=== PATIENT | male | born 1995 | race Two or more races ===

== ENCOUNTER 2019-10-10 02:47 | Emergency (ER) | payer OTHER ==
[~2019-10-10] VITALS: Ht 182.9 cm; Wt 81.8 kg
[2019-10-10] MEDS ORDERED: SODIUM CHLORIDE 0.9% 2,450 ML IV ONE (03:09)
[2019-10-10] MEDS ORDERED: ONDANSETRON HCL 4 MG/2 ML VIAL IVP ONE (03:15)
[2019-10-10] MEDS ORDERED: KETOROLAC TROMETHAMINE 30 MG/ML VIAL IVP ONE (03:15)
[2019-10-10] MEDS ORDERED: IOVERSOL 350 MG/ML 100 ML VIAL ONE (03:17)
[2019-10-10] MEDS ORDERED: SODIUM CHLORIDE 0.9% 100 ML ONE (03:17)
[2019-10-10 04:04] LABS: BASOPHILS % (AUTO) 0.1 % (0.0-2.0); EOSINOPHILS % (AUTO) 0 % (1.0-6.0); HEMATOCRIT 49.4 % (41-53); HEMOGLOBIN 17.1 g/dL (13.5-17.5); LYMPHOCYTES # (AUTO) 0.6 K/uL (1.0-4.8); LYMPHOCYTES % (AUTO) 8.4 % (22.0-44.0); MEAN CORPUSCULAR HEMOGLOBIN 30.3 pg (26.0-34.0); MEAN CORPUSCULAR HGB CONC 34.5 G/dL (31.0-37.0); MEAN CORPUSCULAR VOLUME 88 fL (80-100); NEUTROPHILS # (AUTO) 5.1 K/uL (1.8-7.7); NEUTROPHILS % (AUTO) 76.5 % (40.0-70.0); PLATELET COUNT (AUTO) 103 K/uL (150-450); RED BLOOD CELL COUNT(AUTO) 5.63 MIL/uL (4.50-5.90); RED CELL DISTRIBUTION WIDTH 13.1 % (11.5-14.5)
[2019-10-10 04:13] LABS: CALCIUM, TOTAL 9.1 mg/dL (8.8-10.5); CREATININE 1.7 mg/dL (0.60-1.30); POTASSIUM 3.4 mmol/L (3.5-5.1)
[2019-10-10 04:21] LABS: LACTIC ACID 1.7 mmol/L (0.4-2.0)
[2019-10-10 04:37] LABS: BILIRUBIN,TOTAL 0.6 mg/dL (0.1-1.0); TOTAL PROTEIN, SERUM 7.9 g/dL (6.4-8.2)
[2019-10-10] MEDS ORDERED: POTASSIUM CHLORIDE 20 MEQ ER TABLET PO ONE (05:30)
[2019-10-10 05:34] LABS: APPEARANCE,URINE CLOUDY (CLEAR); BILIRUBIN,URINE PRELIM. POSITIVE (NEGATIVE); GLUCOSE, URINE (UA) NEGATIVE (NEGATIVE); KETONES,URINE NEGATIVE (NEGATIVE); LEUKOCYTE ESTERASE ,URINE NEGATIVE (NEGATIVE); NITRATE,URINE NEGATIVE (NEGATIVE); OCCULT BLOOD,URINE SMALL (NEGATIVE); PH,URINE 5.5 (5.0-8.0); PROTEIN,URINE SEE CONFIRM (NEGATIVE); UROBILINOGEN,URINE 0.2 mg/dL (<=1.0)
[2019-10-10 05:37] LABS: INR 1.2 (0.9-1.1)
[2019-10-10] MEDS ORDERED: MetroNIDAZOLE 500 MG/NACL 100 ML IV ONE (05:45)
[2019-10-10] MEDS ORDERED: CIPROFLOXACIN 400 MG/D5% WATER 200 ML IV ONE (05:45)
[2019-10-10 05:48] LABS: SULFOSALICYLIC ACID,URINE Trace (Negative)
[2019-10-10 05:50] LABS: RBC,URINE 0-2 /HPF (0-2)
[2019-10-10 05:51] LABS: BACTERIA,URINE Few /HPF (None Seen); SQUAMOUS EPITHELIAL CELL,UR Few /LPF (None Seen)
[2019-10-10] MEDS ORDERED: MORPHINE SULFATE 4 MG/ML SYRINGE IVP ONE (06:00)
[2019-10-10 08:30] VITALS: BP 127/86
[2019-10-10 08:50] LABS: C.DIFF GDH ANTIGEN, Stool Negative (Negative); C.DIFF TOXINS A&B, Stool Negative (Negative)
== END 2019-10-10 06:44 | disposition home or self-care (01) ==
LOC: EMS 02:48
DX: K52.9 Noninfective gastroenteritis and colitis, unspecified (principal); E87.6 Hypokalemia; E87.1 Hypo-osmolality and hyponatremia; N19 Unspecified kidney failure; D69.6 Thrombocytopenia, unspecified
CPT/HCPCS: 36415; 71045; 74177; 80053; 81001; 82550; 83605; 83690; 85025; 85610; 87040; 87045; 87324; 87449; 96361; 96365; 96375; 99285; J0744; J1885; J2270; J2405; J3490; J7030; J7050; Q9967